=== PATIENT | male | born 1995 | race Caucasian/White ===

== ENCOUNTER 2018-09-20 14:11 | Emergency (ER) | payer OTHER, SELFPAY ==
[2018-09-20 14:15] VITALS: BP 131/72; PULSE 73; RESP 20; TEMP 36.4; O2SAT 96
--- NOTE | 2018-09-20 16:36 | ED.BACK ---
HPI - Back Pain/Injury <Yamilex Collier PA-C - Last Filed: 09/20/18 22:04> General Chief Complaint: Back Pain/Injury Stated Complaint: back pain, heard a pop Time Seen by Provider: 09/20/18 16:31 Source: patient Mode of arrival: ambulatory Limitations: no limitations History of Present Illness HPI Narrative: This healthy 23-year-old male comes to ED secondary acute onset of back pain today. He states that he stood up, heard a loud pop in his back and has had excruciating pain since that he states brought him to his knees initially, could not stand up due to severity of pain. he states he feels like it is localized in his lower spine mostly but does radiated to the right gluteal area. He denies any radiation of pain down the legs. He states that he has increased pain with walking and leans to the left side to avoid pressure on the right. He states pain is even worse with sitting and swelling to get up or going over bumps in the car. He denies any weakness or paresthesia in the extremities. He denies any bowel or bladder changes or groin weakness. He denies any fever. He denies any trauma though states he was doing survival training over the weekend but does not remember any pain or injury. He has no history of back problems. No fever or rash. Related Data Home Medications Medication Instructions Recorded Confirmed Lani 1 tab PO DAILY 09/20/18 09/20/18 Previous Rx's Medication Instructions Recorded cyclobenzaprine 10 mg PO Q8H #10 tab 09/20/18 tramadol 50 mg PO Q4-6H PRN #14 tab 09/20/18 Allergies Allergy/AdvReac Type Severity Reaction Status Date / Time No Known Drug Allergies Allergy Verified 09/20/18 14:18 Review of Systems <Yamilex Collier PA-C - Last Filed: 09/20/18 22:04> Review of Systems ROS Unobtainable: All systems reviewed & are unremarkable except as noted in HPI and below PFSH <Yamilex Collier PA-C - Last Filed: 09/20/18 22:04> Medical History (Updated 09/20/18 @ 18:20 by Yamilex Collier PA-C) Eustachian tube dysfunction (Chronic) Surgical History (Updated 09/20/18 @ 17:13 by Yamilex Collier PA-C) No history of previous surgery (Acute) Social History Smoking Status: Never smoker Social History Smoking Status: Never smoker Exam <Yamilex Collier PA-C - Last Filed: 09/20/18 22:04> Narrative Exam Narrative: GENERAL APPEARANCE: Patient appears somewhat uncomfortable, in NAD PULMONARY: Lungs clear to auscultation bilaterally CV: Regular rhythm regular without murmur, normal S1 and S2, no S3 or S4 MUSCULOSKELETAL: Point tender over the lumbosacral spine most from L3-S1. Moderate tenderness over the right inferior lumbar and sacral musculature most at the mid scapular line. No SI tenderness. No tenderness over the hips. He is able to flex the trunk to about 45? with tenderness, reduced rotation bilaterally secondary to tenderness, near normal lateral bend. Lower extremity strength 5/5 bilateral hip flexors, knee extensors, foot plantar flexion. Negative modified straight leg raise but resisted thigh flexion does reproduce low back pain. NEUROLOGIC: Bilateral patellar and Achilles DTRs 1+ with distraction Initial Vital Signs Initial Vital Signs: Vital Signs Temperature 97.5 F L 09/20/18 14:15 Pulse Rate 73 09/20/18 14:15 Respiratory Rate 20 09/20/18 14:15 Blood Pressure 131/72 09/20/18 14:15 Pulse Oximetry 96 09/20/18 14:15 <Mauricio Casas DO - Last Filed: 09/21/18 07:12> Initial Vital Signs Initial Vital Signs: Vital Signs Temperature 97.5 F L 09/20/18 14:15 Pulse Rate 73 09/20/18 14:15 Respiratory Rate 20 09/20/18 14:15 Blood Pressure 131/72 09/20/18 14:15 Pulse Oximetry 96 09/20/18 14:15 Course <Yamilex Collier PA-C - Last Filed: 09/20/18 22:04> Additional Information: Patient is feeling significantly improved after medications. He feels like he will be able to rest comfortably. X-ray was done because of atypical spinal pain to palpation, also some muscular pain. reviewed findings and advised further treatment such as PT may be needed depending on progress. He is able to take some time off work as he would not be able to fly, and [place]. Advised not driving on muscle relaxant and tramadol. He is agreeable, return precautions reviewed Orders Ordered: Discontinued Medications Acetaminophen (Tylenol) 975 mg PO NOW ONE Stop: 09/20/18 16:42 Last Admin: 09/20/18 16:43 Dose: 975 mg Cyclobenzaprine HCl (Flexeril) 10 mg PO NOW ONE Stop: 09/20/18 17:04 Last Admin: 09/20/18 17:13 Dose: 10 mg Ibuprofen (Advil) 800 mg PO NOW ONE Stop: 09/20/18 16:42 Last Admin: 09/20/18 16:44 Dose: 800 mg Tramadol HCl (Ultram) 100 mg PO NOW ONE Stop: 09/20/18 17:04 Last Admin: 09/20/18 17:13 Dose: 100 mg Vital Signs - 8 hr 09/20/18 14:15 09/20/18 16:45 09/20/18 18:30 Temperature 97.5 F L Pulse Rate 73 72 67 Respiratory Rate 20 14 18 Blood Pressure 131/72 Blood Pressure [Left Arm] 127/58 L 121/69 Pulse Oximetry 96 98 98 <Mauricio Casas DO - Last Filed: 09/21/18 07:12> Orders Ordered: Discontinued Medications Acetaminophen (Tylenol) 975 mg PO NOW ONE Stop: 09/20/18 16:42 Last Admin: 09/20/18 16:43 Dose: 975 mg Cyclobenzaprine HCl (Flexeril) 10 mg PO NOW ONE Stop: 09/20/18 17:04 Last Admin: 09/20/18 17:13 Dose: 10 mg Ibuprofen (Advil) 800 mg PO NOW ONE Stop: 09/20/18 16:42 Last Admin: 09/20/18 16:44 Dose: 800 mg Tramadol HCl (Ultram) 100 mg PO NOW ONE Stop: 09/20/18 17:04 Last Admin: 09/20/18 17:13 Dose: 100 mg Vital Signs - 8 hr 09/20/18 14:15 09/20/18 16:45 09/20/18 18:30 Temperature 97.5 F L Pulse Rate 73 72 67 Respiratory Rate 20 14 18 Blood Pressure 131/72 Blood Pressure [Left Arm] 127/58 L 121/69 Pulse Oximetry 96 98 98 MDM - Back Pain/Injury <Yamilex Collier PA-C - Last Filed: 09/20/18 22:04> Imaging Data Lsp: Radiologist's impression: [address] [address] XRay Report Signed Patient: Sinai SepulvedanMR#: [id number] : 1995Acct:[id number] Age/Sex: 23 / MDate of Service: 09/20/18 Loc: ED Accession Number: [id number] Procedure: XR lumbar spine 2-3V Ordering Provider: Yamilex Collier P.A-C PROCEDURE: XR LUMBAR SPINE 2-3V INDICATIONS: low lumbar pain - heard a pop bending over to pick something up TECHNIQUE: 3 views of the lumbar spine were acquired. COMPARISON: None. FINDINGS: Bones: 5 [id number] vertebrae are present. There is a mild leftward curvature of the lumbar spine centered at L3-L4. There is minimal retrolisthesis at L1-L2, L2-L3, L3-L4, and L5-S1. There is mildnarrowing at L5-S1. Mild facet arthropathy also demonstrated in the lower lumbar spine. No vertebral body compression fractures. No suspicious bony lesions. Soft tissues: Overlying bowel gas pattern is normal. No suspicious soft tissue calcifications. IMPRESSION: 1. Mild leftward curvature of the lumbar spine and mild multilevel retrolisthesis. 2. Mild degenerative disc disease and facet arthropathy in the lower lumbar spine. Dictated by: Eulogio Bowser M.D. on 09/20/2018 at 17:34 Approved by: Eulogio Bowser M.D. on 09/20/2018 at 17:36 Discharge Plan Departure Patient Disposition: Home Clinical Impression: Strain of lumbar region Qualifiers: Encounter type: initial encounter Qualified Code(s): S39.012A - Strain of muscle, fascia and tendon of lower back, initial encounter Discharge Date/Time: 09/20/18 18:31 Interventions: ED Discharge Assessment Last Done: 09/20/18 18:30 Instructions: DI for Back Pain With Sciatica, DI for Back Strain or Sprain Activity Restrictions/Additional Instructions: Please return as we talked about if you have any acutely worsening symptoms sting, or new symptoms such as weakness in your extremities or inability to urinate, or numbness in your groin. Otherwise please take 800mg Ibuprofen every 8 hours. You can take the muscle relaxant (Cyclobenzeprine) and the pain pill (Tramadol) as needed but remember they can make you sleepy and not to drive. When you take the tramadol, you should take it with Tylenol as they work better together. [place] to refill your pain medicine if needed and assess your progress. You may need further evaluation or physical therapy if you are not getting better. Prescriptions: New tramadol 50 mg tablet 50 mg PO Q4-6H PRN (Reason: pain) Qty: 14 RF: 0 cyclobenzaprine 10 mg tablet 10 mg PO Q8H Qty: 10 RF: 0 No Action Lani 1 tab PO DAILY RF: 0 Referrals: [facility] [Provider Group] <Mauricio Casas DO - Last Filed: 09/21/18 07:12> [facility] Attestation: I was available for consultation during this patient's emergency department encounter
[2018-09-20] MEDS: ACETAMINOPHEN 325 MG TABLET 975 MG PO (16:43)
[2018-09-20] MEDS: IBUPROFEN 400 MG TABLET 800 MG PO (16:44)
[2018-09-20 16:45] VITALS: BP 127/58; PULSE 72; RESP 14; O2SAT 98
--- NOTE | 2018-09-20 17:03 | DI.RAD.S_ITS ---
PROCEDURE: XR LUMBAR SPINE 2-3V INDICATIONS: low lumbar pain - heard a pop bending over to pick something up TECHNIQUE: 3 views of the lumbar spine were acquired. COMPARISON: None. FINDINGS: Bones: 5 [id number] vertebrae are present. There is a mild leftward curvature of the lumbar spine centered at L3-L4. There is minimal retrolisthesis at L1-L2, L2-L3, L3-L4, and L5-S1. There is mildnarrowing at L5-S1. Mild facet arthropathy also demonstrated in the lower lumbar spine. No vertebral body compression fractures. No suspicious bony lesions. Soft tissues: Overlying bowel gas pattern is normal. No suspicious soft tissue calcifications. IMPRESSION: 1. Mild leftward curvature of the lumbar spine and mild multilevel retrolisthesis. 2. Mild degenerative disc disease and facet arthropathy in the lower lumbar spine. Dictated by: Euloigo Bowser M.D. on 09/20/2018 at 17:34 Approved by: Eulogio Bowser M.D. on 09/20/2018 at 17:36
[2018-09-20] MEDS: CYCLOBENZAPRINE 10 MG TABLET PO (17:13)
[2018-09-20] MEDS: TRAMADOL 50 MG TABLET 100 MG PO (17:13)
[2018-09-20 18:30] VITALS: BP 121/69; PULSE 67; RESP 18; O2SAT 98
== END 2018-09-20 18:31 | disposition home or self-care (01) ==
PROVIDERS: Emergency Provider Internal Medicine
DX: S39.012A Strain of muscle, fascia and tendon of lower back, initial encounter (principal)
CPT/HCPCS: 72100; 99282; 99283

== ENCOUNTER 2020-03-17 10:06 | Emergency (ER) | payer OTHER, SELFPAY ==
[2020-03-17 10:18] VITALS: PULSE 88; O2SAT 100
[2020-03-17 10:19] VITALS: BP 148/80; PULSE 88; O2SAT 100
[2020-03-17 10:25] VITALS: BP 148/80; PULSE 77; RESP 18; TEMP 37; O2SAT 97; BMI 30.2
[2020-03-17 10:33] LABS: Add Manual Diff / Slide Review NO; Basophils Absolute Auto 0 /uL (0-100); Basophils Percent Auto 0.5 % (0-2); Eosinophils Absolute Auto 100 /uL (0-450); Eosinophils Percent Auto 1.1 % (2-4); Hematocrit 39.1 % (41-53); Hemoglobin 13.6 g/dL (13.5-17.5); Lymphocytes Absolute Auto 1300 /uL (1100-4500); Lymphocytes Percent Auto 21.4 % (25-40); Mean Corpuscular HGB Conc 34.6 % (30-36); Mean Corpuscular Hemoglobin 30.7 PG (26-34); Mean Corpuscular Volume 88.6 fL (80-100); Monocytes Absolute Auto 500 /uL (0-900); Monocytes Percent Auto 7.4 % (3-14); Neutrophils Absolute Auto 4300 /uL (1500-7000); Neutrophils Percent Auto 69.6 % (50-75); Platelet Count 193 X10^3/uL (150-400); Red Blood Cell Count 4.42 X10^6/uL (4.5-5.9); Red Cell Distribution Width 12.2 % (11.6-14.8); White Blood Cell Count 6.1 X10^3/uL (4.5-11.0)
[2020-03-17 10:48] LABS: Alanine Aminotransferase 17 IU/L (<50); Albumin 4.4 g/dL (3.5-5.0); Albumin Globulin Ratio 1.4 (1.0-2.8); Alkaline Phosphatase 62 U/L (38-126); Aspartate Aminotransferase 20 IU/L (17-59); BUN Creatinine Ratio 17.5 (6-22); Bilirubin Total 0.7 mg/dL (0.2-1.3); Blood Urea Nitrogen 14 mg/dL (9-20); Calcium 9.3 mg/dL (8.4-10.2); Carbon Dioxide 33 mmol/L (22-32); Chloride 101 mmol/L (98-107); Estimated Glomerular Filt Rate > 60.0 mL/min (>60); Globulin 3.1 g/dL (1.7-4.1); Glucose 97 mg/dL (70-100); HEMOLYSIS < 15 (0-50); Potassium 4.2 mmol/L (3.4-5.1); Sodium 137 mmol/L (137-145); Total Protein 7.5 g/dL (6.3-8.2)
--- NOTE | 2020-03-17 11:19 | ED_ITS ---
HPI - Male Genitourinary General Chief complaint: Urogenital-Male Stated complaint: POSS UTI/ KIDNEY STONES Time Seen by Provider: 03/17/20 11:12 Source: patient Mode of arrival: Ambulatory Limitations: no limitations History of Present Illness HPI Narrative: Patient is a 24-year-old male history of kidney stones presenting with painful frequent urination along with hematuria. He says that he has had some painful urination ongoing for the last couple of days and then noticed blood in his urine yesterday. He has absolutely no flank pain abdominal pain or testicle pain. He has no penile discharge. He has never had a UTI past. Previously when he has had kidney stones he was asymptomatic swell. He denies a [place] fever or chills. MD Complaint: dysuria Onset (ago): day(s) Related Data Home Medications Medication Instructions Recorded Confirmed Lani 1 tab PO DAILY 09/20/18 09/20/18 Previous Rx's Medication Instructions Recorded cyclobenzaprine 10 mg PO Q8H #10 tab 09/20/18 tramadol 50 mg PO Q4-6H PRN #14 tab 09/20/18 sulfamethoxazole-trimethoprim 1 tab PO BID #14 tab 03/17/20 [Bactrim DS] Allergies Allergy/AdvReac Type Severity Reaction Status Date / Time No Known Drug Allergies Allergy Verified 09/20/18 14:18 Review of Systems Review of Systems Narrative: GENERAL: Denies chills, fatigue, malaise, fever, sweats, travel HEENT: Denies sinus pain, ear pain, sore throat, difficulty swallowing, neck pain RESPIRATORY: Denies dyspnea, cough, wheezing, hemoptysis, sputum. CARDIOVASCULAR: Denies chest pain, palpitations, orthopnea, edema GASTROINTESTINAL: Denies nausea, vomiting, abdominal pain, diarrhea, const ipation, melena. : Denies dysuria, frequency, incontinence, hematuria, urinary retention, flank pain. MUSCULOSKELETAL: Denies weakness, joint pain, or bony pain SKIN: No rash, no erythema, no pruritus NEUROLOGIC: Denies weakness, dizziness, headache, numbness, change in speech, confusion PSYCHIATRIC: No concerning psychosocial issues. 12 point review of systems is negative except for those stated above and HPI Patient History Medical History Eustachian tube dysfunction (Chronic) Surgical History No history of previous surgery (Acute) Social History Smoking Status: Never smoker Smoking Status: Never smoker Exam Initial Vital Signs Initial Vital Signs: Vital Signs Pulse Rate 88 03/17/20 10:18 Pulse Oximetry 100 03/17/20 10:18 GENERAL: Well-appearing, well-nourished and in no acute distress. HEENT: Head atraumatic,EOMI, pupils reactive, face symmetric, moist mucous membranes CARDIOVASCULAR: Regular rate and rhythm without murmurs, rubs or gallops. RESPIRATORY: Breath sounds equal bilaterally, no wheezes rales or rhonchi. ABDOMEN: Soft, nontender. Normoactive bowel sounds all 4 quadrants. No guarding or rebound. : No CVA tenderness EXTREMITIES: Normal range of motion, no clubbing or edema. Neurovascularly intact NEUROLOGICAL: Alert and oriented x4.Normal gait and speech. SKIN: Warm, dry, no laceration, no petechiae, no rashes or lesions. Course Orders Ordered: ED Orders 03/17/20 10:23 CMP [Comprehensive Metabolic Panel] Stat Complete Blood Count AUTO DIFF Stat 03/17/20 11:16 Urinalysis and Microscopic Stat Vital Signs Vital signs: Vital Signs - 8 hr 03/17/20 10:18 03/17/20 10:19 03/17/20 10:25 Temperature 98.6 F Pulse Rate 88 88 77 Respiratory Rate 18 Blood Pressure 148/80 H 148/80 H Pulse Oximetry 100 100 97 03/17/20 12:05 03/17/20 12:16 Temperature 97.0 F L Pulse Rate 70 Respiratory Rate 18 Blood Pressure 124/77 Pulse Oximetry 99 MDM - Male Genitourinary Lab Data Attestation: I reviewed the patient's lab results. Result diagrams: 03/17/20 10:23 03/17/20 10:23 Labs: Lab Results 03/17/20 03/17/20 03/17/20 Range/Units 10:23 10:23 11:16 WBC 6.1 (4.5-11.0) X10^3/uL RBC 4.42 L (4.5-5.9) X10^6/uL Hgb 13.6 (13.5-17.5) g/dL Hct 39.1 L (41-53) % MCV 88.6 (80-100) fL MCH 30.7 (26-34) PG MCHC 34.6 (30-36) % RDW 12.2 (11.6-14.8) % Plt Count 193 (150-400) X10^3/uL Neut % (Auto) 69.6 (50-75) % Lymph % (Auto) 21.4 L (25-40) % [place]ward % (Auto) 7.4 (3-14) % Eos % (Auto) 1.1 L (2-4) % Baso % (Auto) 0.5 (0-2) % Neut # (Auto) 4300 (5430-7712) /uL Lymph # (Auto) 1300 (2322-7292) /uL Woodward # (Auto) 500 (0-900) /uL Eos # (Auto) 100 (0-450) /uL Baso # (Auto) 0 (0-100) /uL Sodium 137 (137-145) mmol/L Potassium 4.2 (3.4-5.1) mmol/L Chloride 101 (98-107) mmol/L Carbon Dioxide 33 H (22-32) mmol/L BUN 14 (9-20) mg/dL Creatinine 0.80 (0.66-1.25) mg/dL Estimated GFR > 60.0 (>60) mL/min BUN/Creatinine Ratio 17.5 (6-22) Glucose 97 (70-100) mg/dL Calcium 9.3 (8.4-10.2) mg/dL Total Bilirubin 0.7 (0.2-1.3) mg/dL AST 20 (17-59) IU/L ALT 17 (<50) IU/L Alkaline Phosphatase 62 (38-126) U/L Total Protein 7.5 (6.3-8.2) g/dL Albumin 4.4 (3.5-5.0) g/dL Globulin 3.1 (1.7-4.1) g/dL Albumin/Globulin Ratio 1.4 (1.0-2.8) Urine Color Yellow Urine Appearance Clear Urine pH 7.0 (4.5-8.0) Ur Specific [place] 1.015 (1.000-1.035) Urine Protein Trace H (Negative) Urine Glucose (UA) Negative (Negative) g/dL Urine Ketones Trace H (NEGATIVE) Urine Occult Blood 3+ H (Negative) Urine Nitrate Negative (Negative) Urine Bilirubin Negative (NEGATIVE) Urine Urobilinogen 0.2 (0.2) E.U./dL Ur Leukocyte Esterase Negative (NEGATIVE) Urine RBC 10-30/hpf H (0-5/HPF) Urine WBC 1-5/hpf (0-5/HPF) Ur Squamous Epith Cells 1-5 /hpf (0-5/HPF) Urine Bacteria Moderate (10-30) H (None) Urine Mucus 2+ H (Negative) Ur Culture Indicated? Cult not indicated MDM Narrative Medical decision making narrative: Patient really has no signs and symptoms of a kidney stone. He has got bacteria and blood in his urine along with symptoms of dysuria and frequency, possible UTI although he has no leukocytes or nitrates. Will put him on antibiotic to see if it helps. Discharge Plan Departure Patient Disposition: Home Clinical Impression: Urinary tract infection Qualifiers: Urinary tract infection type: acute cystitis Hematuria presence: with hematuria Qualified Code(s): N30.01 - Acute cystitis with hematuria Discharge Date/Time: 03/17/20 12:16 Instructions: DI for Urinary Tract Infection (UTI) Activity Restrictions/Additional Instructions: *You have been diagnosed with UTI *What to do: At this time give no signs of kidney stone. Let us try course of antibiotics to see if your symptoms improve *Continue to take medications as directed Bactrim 1 pill twice daily for 7 days *Follow up with your primary care provider in 2-3 days *Return to ER if you should have increased pain, back pain, nausea, vomiting or any new, worsening or concerning symptoms Prescriptions: New sulfamethoxazole-trimethoprim [Bactrim DS] 800-160 mg tablet 1 tab PO BID Qty: 14 RF: 0 No Action Lani 1 tab PO DAILY RF: 0 tramadol 50 mg tablet 50 mg PO Q4-6H PRN (Reason: pain) Qty: 14 RF: 0 cyclobenzaprine 10 mg tablet 10 mg PO Q8H Qty: 10 RF: 0 Referrals: [facility] [Outside]
[2020-03-17 11:22] LABS: Appearance Urine UA CLEAR; Bilirubin Urine UA NEGATIVE (NEGATIVE); Color Urine UA YELLOW; Glucose Urine UA NEGATIVE (Negative); Ketones Urine UA TRACE (NEGATIVE); Leukocyte Esterase Urine UA NEGATIVE (NEGATIVE); Nitrite Urine UA NEGATIVE (Negative); Occult Blood Urine UA 3+ (Negative); Protein Urine UA TRACE (Negative); Specific Gravity Urine UA 1.015 (1.000-1.035); Urobilinogen Urine UA 0.2 E.U./dL (0.2)
[2020-03-17 11:39] LABS: Bacteria Urine Moderate (10-30); Culture Indicated Urine Cult Not Indicated; Mucus Urine 2+ (Negative); RBC Urine 10-30/HPF (0-5/HPF); Squamous Epithelial Cell Urine 1-5 /HPF (0-5/HPF); WBC Urine 1-5/HPF (0-5/HPF)
[2020-03-17 12:05] VITALS: BP 124/77; PULSE 70; RESP 18; O2SAT 99
[2020-03-17 12:16] VITALS: TEMP 36.1
== END 2020-03-17 12:16 | disposition home or self-care (01) ==
PROVIDERS: Emergency Provider Emergency Medicine
DX: N30.01 Acute cystitis with hematuria (principal)
CPT/HCPCS: 36415; 80053; 81001; 85025; 99283